=== PATIENT | male | born 1945 | race Caucasian/White ===

== ENCOUNTER → 2016-08-03 | Outpatient (CLI) | payer OTHER, MEDICARE | LOC: FIMAGING 14:27 | PROVIDERS: ATTEND Orthopaedic Surgery | DX: Z01.818 Encounter for other preprocedural examination (principal); M25.762 Osteophyte, left knee ==

== ENCOUNTER 2016-08-18 07:15 | Observation (INO) | payer OTHER, MEDICARE ==
[~2016-08-18 07:15] MED LIST: ACETAMINOPHEN 325 MG TAB PO ONE; CEFAZOLIN 2 GM/DEXTR 100 ML IV ONE; CHLORHEXIDINE GLUC HIBICLENS 118 ML BTL TP ONE; DEXAMETHASONE 4 MG/ML VIAL IVP ONE; FAMOTIDINE 20 MG TAB PO ONE; ROPI/epiNEPH/KETOROLAC JOINT COCKTAIL IU ONE; TRANEXAMIC ACID 3,000 MG in NS 50 ML IRR ONE
[2016-08-18] MEDS ORDERED: TRANEXAMIC ACID 3,000 MG/50 ML BAG IRR ONE (11:50)
[2016-08-18] MEDS ORDERED: SKIN ADHESIVE (DERMABOND) 1 EACH TP ONE (11:50)
[2016-08-18] MEDS ORDERED: VANCOMYCIN 1 GM VIAL IV ONE (11:50)
[2016-08-18] MEDS ORDERED: DEXAMETHASONE 4 MG/ML VIAL ONE (12:02)
[2016-08-18] MEDS ORDERED: FAMOTIDINE 20 MG TAB ONE (12:03)
[2016-08-18] MEDS ORDERED: ACETAMINOPHEN 325 MG TAB ONE (12:03)
[2016-08-18] MEDS ORDERED: CEFAZOLIN 2 GM/DEXTROSE/100 ML BAG IV ONE (12:03)
[2016-08-18] MEDS ORDERED: LR 1,000 ML IV ONE (12:19)
[2016-08-18] MEDS ORDERED: PROPOFOL/EMULSION 500 MG/50 ML BOTTLE IV ONE (12:48)
[2016-08-18] MEDS ORDERED: fentaNYL 100 MCG/2 ML INJ ONE ×2 (12:54→13:36)
[2016-08-18] MEDS ORDERED: MIDAZOLAM 2 MG/2 ML VIAL ONE (12:58)
[2016-08-18] MEDS ORDERED: PROPOFOL 200 MG/20 ML VIAL ONE ×3 (13:40→14:32)
[2016-08-18] MEDS ORDERED: POLYETHYLENE GLYCOL 3350 17 GM PKT PO PRN (14:36)
[2016-08-18] MEDS ORDERED: PHARMACY PAIN CONSULT 1 EA MISC PRN (14:36)
[2016-08-18] MEDS ORDERED: BISACODYL 10 MG SUPP PR PRN (14:36)
[2016-08-18] MEDS ORDERED: diphenhydrAMINE 25 MG CAP PO PRN (14:36)
[2016-08-18] MEDS ORDERED: TEMAZEPAM 15 MG CAP PO PRN (14:36)
[2016-08-18] MEDS ORDERED: DIPHENOXYLATE/ATROPINE LOMOTIL 1 TAB PO PRN (14:36)
[2016-08-18] MEDS ORDERED: ONDANSETRON DISINTEGRATING 4 MG TAB PO PRN (14:36)
[2016-08-18] MEDS ORDERED: PROMETHAZINE HCL 25 MG SUPPR PR PRN (14:36)
[2016-08-18] MEDS ORDERED: CYCLOBENZAPRINE 10 MG TAB PO PRN (14:36)
[2016-08-18] MEDS ORDERED: MAGNESIUM HYDROXIDE 30 ML UDCUP PO PRN (14:36)
[2016-08-18] MEDS ORDERED: LACTULOSE 20 GM/30 ML UDCUP PO PRN (14:36)
[2016-08-18] MEDS ORDERED: oxyCODONE IR 5 MG TAB PO PRN (14:36)
[2016-08-18] MEDS ORDERED: ONDANSETRON 4 MG/2 ML VIAL IVP PRN (14:36)
[2016-08-18] MEDS ORDERED: METOCLOPRAMIDE 10 MG/2 ML VIAL IVP PRN (14:36)
--- NOTE | 2016-08-18 14:36 | POSTOPPROG ---
Post Op Note Date of Operation: 08/18/16 Surgeon: Lee Ann Guillen Tailor Garment Fitter: mariela guillen Anesthesiologist: dr. laureano Anesthesia: Spinal, Other (Specify) (adductor canal block) Pre-op Diagnosis: left knee OA Post-op Diagnosis: same Indication: left knee pain due to OA that failed conservative measures Procedure: L med MPL robot assisted Findings: severe medial knee OA Inf/Abcess present in the surg proc area at time of surgery?: No EBL: 50-100
[2016-08-18] MEDS ORDERED: LR 1,000 ML IV SCH (15:00)
[2016-08-18] MEDS ORDERED: WARFARIN SODIUM 5 MG TAB PO SCH (16:00)
[2016-08-18] MEDS: ACETAMINOPHEN 325 MG TAB PO SCH ×2 (18:15→23:01)
[2016-08-18] MEDS ORDERED: MIRTAZAPINE 15 MG TAB PO SCH (21:00)
[2016-08-18] MEDS: SENNOSIDES/DOCUSATE SODIUM TAB PO SCH (21:09)
[2016-08-18] MEDS: ceFAZolin 2 GM/DEXTROSE 100 ML IV SCH (21:09)
[2016-08-18] MEDS: FAMOTIDINE 20 MG TAB PO SCH (21:09)
[2016-08-19] MEDS: ceFAZolin 2 GM/DEXTROSE 100 ML IV SCH (05:47)
[2016-08-19] MEDS: ACETAMINOPHEN 325 MG TAB PO SCH (05:47)
[2016-08-19 06:07] LABS: HEMATOCRIT 39.6 % (40.0-51.0); HEMOGLOBIN 14.1 g/dL (13.7-17.5)
[2016-08-19 06:17] LABS: INR 1.07 (0.83-1.16); PROTIME(PATIENT) 13.8 SEC (12.0-15.0)
[2016-08-19 08:07] VITALS: RESP 20; TEMP 97.6
[2016-08-19] MEDS: SENNOSIDES/DOCUSATE SODIUM TAB PO SCH (08:35)
[2016-08-19] MEDS: FAMOTIDINE 20 MG TAB PO SCH (08:36)
[2016-08-19] MEDS ORDERED: MIRTAZAPINE 15 MG PO SCH (09:00)
[2016-08-19] MEDS ORDERED: ENOXAPARIN 40 MG/0.4 ML SYR SC SCH (09:00)
[2016-08-19] MEDS ORDERED: VERAPAMIL ER 240 MG TAB PO SCH (09:00)
[2016-08-19] MEDS ORDERED: ATORVASTATIN CALCIUM 40 MG TAB PO SCH (09:00)
--- NOTE | 2016-08-19 10:02 | SOAPPROG ---
SOAP Progress Note Assessment/Plan: Assessment: Kane is doing well POD 1 s/p L medial PKA 1. pain management: pain is well controlled on oral pain meds 2. VTEppx: recommend coumadin and lovenox for 3 weeks. rec SILVANO and SCDs 3. Anemia: level expected initially postop, asymptomatic 4. D/c planning: recommend d/c to home pending release from PT today. Plan: 08/19/16 10:00 08/19/16 10:01 Subjective: Kane is doing well today, denies SOB, chest pain and N/V. Objective: Vital Signs Temp Pulse Resp BP Pulse Ox 36.4 C 80 20 132/76 H 96 08/19/16 08:00 08/19/16 08:00 08/19/16 08:00 08/19/16 08:36 08/19/16 08:00 Laboratory Results 08/19/16 05:48 08/18/16 08/19/16 08/20/16 05:59 05:59 05:59 Intake Total 2200 Output Total 980 Balance 1220 PT 13.8 SEC (12.0-15.0) 08/19/16 05:48 INR 1.07 (0.83-1.16) 08/19/16 05:48 LLE: incision dressing is clean and dry, NVI, +pf/df ICD10 Worksheet Patient Problems: Problems Problem Status Onset Primary localized osteoarthritis of right knee Acute
--- NOTE | 2016-08-19 11:16 | GDS ---
[f rep st] DISCHARGE SUMMARY ADMISSION DIAGNOSIS: Left knee osteoarthritis. DISCHARGE DIAGNOSIS: Left knee osteoarthritis. PROCEDURE: Left partial knee arthroplasty, medial compartment, robot assisted. VTE PROPHYLAXIS: Recommend Coumadin and Lovenox. BRIEF DESCRIPTION OF HOSPITAL STAY: Patient was admitted for an elective joint arthroplasty. The p atient tolerated the procedure well and has passed physical therapy. The patient was given appropri ate antibiotic prophylaxis and venous thromboembolism prophylaxis. The patient's pain was well cont rolled on oral pain medication, patient was holding down food, and had urinated. Decision was made to discharge the patient. The patient was given post-operative prescriptions pre-operatively. PLAN: Please follow up with Dr. Lobato's office, [facility], on September 07 at 10:15 a.m. /[id number]/MODL
--- NOTE | 2016-08-19 11:31 | GOP ---
[f rep st] OPERATIVE REPORT DATE OF OPERATION: 08/18/2016 SURGEON: Marcelina Lobato MD LATHE TURNER: DULCE Ram ANESTHESIA: Spinal. PREOPERATIVE DIAGNOSIS: Left knee osteoarthritis. POSTOPERATIVE DIAGNOSIS: Left knee osteoarthritis. PROCEDURE PERFORMED: Left medial compartment partial knee replacement with computer navigation and robotic assistance. FINDINGS: severe medial OA ESTIMATED BLOOD LOSS: 30 mL INDICATIONS: This is a 71-year-old male with progressive pain of the left knee unresponsive to conservative care. Risks and benefits of surgical intervention were explained in detail. DESCRIPTION OF PROCEDURE: The patient was brought to the operating room and placed on the table in supine position. Spinal anesthesia was induced without difficulty. A pneumatic tourniquet was applied about the left proximal thigh and the leg was prepped and draped in sterile fashion. Attention was turned first to the distal aspect of the left femur. At 3 cm proximal to the lateral rise of the femur, 2 percutaneous half pins were placed for fixation of the femoral array. In a similar fashion, 2 pins were placed anterolateral on the tibia for fixation of the tibial array. External land marking and registration of the hip center was performed without difficulty. After exsanguination by elevation, the tourniquet was inflated to 250 mmHg. Incision was made from the tibial tuberosity to the superior pole of the patella. Dissection was carried out through the subcutaneous tissue to the deep fascia using Bovie electrocautery for hemostasis. Medial parapatellar arthrotomy was carried out to the superior pole of the patella. The medial collateral ligament was elevated and the infrapatellar fat pad was resected. Internal femoral and tibial registration was carried out without difficulty and the femoral and tibial checkpoints were placed and verified for accuracy. Attention was turned to the femur. The foot print for the size 3 femoral component was cut with the 6 mm bur using the [employer] robotic system and verified for accuracy against the CT based plan. The hole was cut for the femoral post. In a similar fashion, the 6 mm bur was used to cut the foot print for the size 4 tibial component using the [employer] system and verified for accuracy against the CT based plan. Attention was turned to the posterior aspect of the knee and remnants of the medial meniscus were excised. The posterior capsule was injected with ropivacaine, epinephrine and Toradol. Trial reduction was carried out and there was excellent range of motion, alignment and stability using the size 3 femoral component and the size 4 tibial component, 4 x 8 mm polyethylene. All trials were then removed. The joint was thoroughly irrigated and carefully dried. One package of cement and 1 gram of vancomycin were mixed in the vacuum mixer and placed on the fixation surfaces of all components. The components were implanted and all excess cement was thoroughly removed. Implant placement was verified against the CT view plan and found to be excellent. The tourniquet was deflated and all bleeders were coagulated. The wound was thoroughly irrigated and closed using interrupted sutures of 2-0 Vicryl for the joint capsule. The subcu was closed with 3-0 Vicryl and the skin with 4-0 Monocryl. Dermabond and Steri-Strips were applied, followed by a compressive dressing. The patient was then moved from the operating room to the recovery room in good condition, having tolerated the procedure well. CASE CLASSIFICATION: Clean. /[id number]/MODL MTDD
[2016-08-19 12:24] VITALS: BP 132/86; PULSE 78; O2SAT 97
== END 2016-08-19 11:09 | disposition home or self-care (01) ==
LOC: INTOOBSV 10:54 → F3N 10:54
PROVIDERS: ADMIT Orthopaedic Surgery; ATTEND Orthopaedic Surgery
DX: M17.12 Unilateral primary osteoarthritis, left knee (principal); Z85.46 Personal history of malignant neoplasm of prostate
CPT/HCPCS: 27446; 73560; 97161; 97165; C1713; C1776; G8978; G8979; G8980; G8987; G8988; G8989; J0171; J0690; J1100; J1650; J1885; J2250; J2704; J2795; J3010; J3370

== ENCOUNTER → 2017-10-16 | Outpatient (CLI) | payer OTHER, MEDICARE | LOC: FCPNEURO 20:00 | PROVIDERS: ATTEND Psychiatry & Neurology Sleep Medicine | DX: G47.33 Obstructive sleep apnea (adult) (pediatric) (principal) ==